=== PATIENT | male | born 1990 | race Two or more races ===

== ENCOUNTER 2021-05-10 02:07 | Inpatient (IN) | payer OTHER ==
[2021-05-10] VITALS (42 sets, daily range): BP systolic 99–210; BP diastolic 58–119
[~2021-05-10] VITALS: Ht 175.3 cm; Wt 105.7 kg
[2021-05-10] MEDS ORDERED: ASPIRIN 81MG TABLET PO ONE (02:45)
[2021-05-10] MEDS ORDERED: HEPARIN 25,000 UNITS PREMIX 250 ML IV PRN (02:45)
[2021-05-10] MEDS ORDERED: FENTANYL CITRATE/PF 50MCG/ML 2ML VIAL IV ONE (02:45)
[2021-05-10] MEDS ORDERED: HEPARIN 5000 UNITS/ML VIAL IV SCH (02:45)
[2021-05-10] MEDS ORDERED: SODIUM CHLORIDE 0.9% 1,000 ML IV ONE (02:45)
[2021-05-10] MEDS ORDERED: HEPARIN BOLUS PRN aPTT 30-44 IV (03:30)
[2021-05-10] MEDS ORDERED: HEPARIN 60 UNITS/KG BOLUS IV SCH (03:30)
[2021-05-10] MEDS ORDERED: HEPARIN BOLUS PRN aPTT <30 IV (03:30)
[2021-05-10] MEDS ORDERED: HEPARIN 25,000 UNITS PREMIX 250 ML IV SCH (03:30)
[2021-05-10] MEDS ORDERED: LIDOCAINE HCL 1% 20ML VIAL (Pyxis) INJ ONE (03:35)
[2021-05-10] MEDS ORDERED: FENTANYL CITRATE/PF 50MCG/ML 2ML VIAL ONE (03:35)
[2021-05-10] MEDS ORDERED: MIDAZOLAM HCL 2 MG/2 ML VIAL ONE (03:35)
[2021-05-10] MEDS ORDERED: IOHEXOL-300 100 ML BOTTLE ONE (03:36)
[2021-05-10] MEDS ORDERED: IODIXANOL 320MG/ML 100 ML BOTTLE IV ONE (03:36)
[2021-05-10 03:55] LABS: CHLORIDE 100 mEq/L (98-107)
[2021-05-10 03:58] LABS: ETHANOL BLOOD < 10 mg/dL
[2021-05-10] MEDS ORDERED: TICAGRELOR 90 MG TABLET PO ONE (04:14)
[2021-05-10] MEDS ORDERED: ONDANSETRON HCL 4MG/2ML INJ IV PRN ×2 (04:15→07:00)
[2021-05-10] MEDS ORDERED: ACETAMINOPHEN 325MG TABLET PO PRN ×3 (04:15→07:00)
[2021-05-10] MEDS ORDERED: MORPHINE SULFATE 2 MG/ML CPJ (NOT FOR IM USE) IV PRN (04:15)
[2021-05-10] MEDS ORDERED: ASPIRIN 325MG TABLET ONE (04:17)
[2021-05-10] MEDS ORDERED: LISINOPRIL 2.5MG TABLET PO SCH (05:00)
[2021-05-10] MEDS ORDERED: ATROPINE SULFATE 1MG/10ML SYR IV PRN (05:00)
[2021-05-10] MEDS: SODIUM CHLORIDE 0.45% 1,000 ML IV SCH ×2 (05:35→13:33)
[2021-05-10 06:12] LABS: BASOPHILS % 0.8 % (0.0-2.0); EOSINOPHILS % 0.4 % (0.0-5.0); HEMATOCRIT. 44.9 % (42.0-52.0); HEMOGLOBIN. 16.4 g/dL (14.0-18.0); LYMPHOCYTES % 16.1 % (20.0-50.0); MEAN CORPUSCULAR HEMOGLOBIN 30.8 pg (28.0-32.0); MEAN CORPUSCULAR VOLUME 84.2 fL (80.0-94.0); MEAN PLATELET VOLUME 8.4 fl (7.4-10.4); MONOCYTES % 8.6 % (2.0-8.0); NEUTROPHILS % 74.1 % (40.0-76.0); PLATELET 302 x1000/uL (130-400); RED BLOOD CELL COUNT 5.33 mill/uL (4.7-6.1); RED CELL DISTRIBUTION WIDTH 13.2 % (11.6-14.6)
[2021-05-10 06:36] LABS: INR 1.1; PROTHROMBIN TIME 11.4 sec (9.6-11.0)
[2021-05-10] MEDS ORDERED: MAGNESIUM/ALUMINUM HYDROXIDE/SIMETHICONE 30ML UDC PO PRN (07:00)
[2021-05-10] MEDS ORDERED: NITROGLYCERIN 0.4MG TABLET SL SL PRN (07:00)
[2021-05-10] MEDS ORDERED: CLONIDINE 0.1MG TABLET PO PRN (07:00)
[2021-05-10] MEDS ORDERED: DOCUSATE SODIUM 100MG CAPSULE PO PRN (07:00)
[2021-05-10] MEDS ORDERED: IPRATROPIUM/ALBUTEROL 0.5-3(2.5)MG/3ML NEB NEB PRN (07:00)
[2021-05-10] MEDS ORDERED: DEXTROSE 50% WATER 50ML SYRINGE IV PRN (07:00)
[2021-05-10] MEDS ORDERED: GUAIFENESIN 200MG/10ML SUGAR FREE UDC PO PRN (07:00)
[2021-05-10] MEDS ORDERED: KETOROLAC 15MG/ML VIAL IV PRN (07:00)
[2021-05-10 07:20] LABS: PARTIAL THROMBOPLASTIN TIME 97.2 sec (23.4-31.0)
[2021-05-10] MEDS ORDERED: NALOXONE HCL 0.4MG/ML VIAL IV PRN (07:45)
[2021-05-10] MEDS: BLOOD SUGAR DIAGNOSTIC STRIP TEST SCH ×4 (07:50→21:31)
[2021-05-10] MEDS: ASPIRIN 81MG TABLET PO SCH (08:21)
[2021-05-10] MEDS: CLOPIDOGREL 75MG TABLET PO SCH (08:22)
[2021-05-10] MEDS: FAMOTIDINE 20MG TABLET PO SCH ×2 (08:22→20:20)
[2021-05-10] MEDS: NITROGLYCERIN OINT 1GM/INCH UDPKT TD SCH ×3 (08:25→22:44)
[2021-05-10] MEDS: METOPROLOL TARTRATE 25MG TABLET PO SCH ×2 (08:25→21:41)
[2021-05-10] MEDS: INSULIN LISPRO 100 UNITS/ML SUBCUT SCH ×4 (08:26→20:54)
[2021-05-10] MEDS: AMLODIPINE 10MG TABLET PO SCH (08:26)
[2021-05-10] MEDS: INSULIN GLARGINE UD 100 UNITS/ML SYR SUBCUT SCH (10:18)
[2021-05-10] MEDS ORDERED: HEPARIN 1000 UNITS/ML 10ML ONE (10:32)
[2021-05-10 17:18] LABS: CREATINE KINASE MB FRACTION 20.6 ng/mL (0.5-3.6)
[2021-05-10] MEDS: ATORVASTATIN CALCIUM 40MG TABLET PO SCH (20:20)
[2021-05-10] MEDS ORDERED: ZOLPIDEM TARTRATE 5MG TABLET PO PRN (21:00)
[2021-05-11] VITALS (52 sets, daily range): BP systolic 66–134; BP diastolic 30–108
[2021-05-11] MEDS: SODIUM CHLORIDE 0.45% 1,000 ML IV SCH ×2 (00:22→09:15)
[2021-05-11 00:26] LABS: CREATINE KINASE MB FRACTION 10.9 ng/mL (0.5-3.6)
[2021-05-11] MEDS: NITROGLYCERIN OINT 1GM/INCH UDPKT TD SCH ×3 (05:16→21:57)
[2021-05-11 06:46] LABS: BASOPHILS % 0.4 % (0.0-2.0); EOSINOPHILS % 0.6 % (0.0-5.0); HEMATOCRIT. 41.2 % (42.0-52.0); HEMOGLOBIN. 14.7 g/dL (14.0-18.0); LYMPHOCYTES % 19.7 % (20.0-50.0); MEAN CORPUSCULAR HEMOGLOBIN 30.4 pg (28.0-32.0); MEAN CORPUSCULAR VOLUME 85.5 fL (80.0-94.0); MEAN PLATELET VOLUME 8.7 fl (7.4-10.4); MONOCYTES % 10.7 % (2.0-8.0); NEUTROPHILS % 68.6 % (40.0-76.0); PLATELET 279 x1000/uL (130-400); RED BLOOD CELL COUNT 4.82 mill/uL (4.7-6.1)
[2021-05-11] MEDS: BLOOD SUGAR DIAGNOSTIC STRIP TEST SCH ×4 (07:35→20:09)
[2021-05-11] MEDS: ASPIRIN 81MG TABLET PO SCH (09:10)
[2021-05-11] MEDS: FAMOTIDINE 20MG TABLET PO SCH ×2 (09:11→20:15)
[2021-05-11] MEDS: AMLODIPINE 10MG TABLET PO SCH (09:11)
[2021-05-11] MEDS: METOPROLOL TARTRATE 25MG TABLET PO SCH ×2 (09:11→21:58)
[2021-05-11] MEDS: CLOPIDOGREL 75MG TABLET PO SCH (09:11)
[2021-05-11] MEDS: INSULIN LISPRO 100 UNITS/ML SUBCUT SCH ×4 (09:12→20:18)
[2021-05-11] MEDS: INSULIN GLARGINE UD 100 UNITS/ML SYR SUBCUT SCH (09:12)
[2021-05-11 09:54] LABS: CHLORIDE 101 mEq/L (98-107)
[2021-05-11 10:11] LABS: PHOSPHORUS 2.6 mg/dL (2.5-4.9)
[2021-05-11] MEDS ORDERED: POTASSIUM CHLORIDE 20MEQ/PACKET PO NR (11:15)
[2021-05-11] MEDS ORDERED: INSULIN GLARGINE UD 100 UNITS/ML SYR SUBCUT NR (13:00)
[2021-05-11] MEDS: ATORVASTATIN CALCIUM 40MG TABLET PO SCH (20:14)
[2021-05-12] VITALS (20 sets, daily range): BP systolic 105–145; BP diastolic 44–88
[2021-05-12] MEDS: NITROGLYCERIN OINT 1GM/INCH UDPKT TD SCH (05:42)
[2021-05-12 07:07] LABS: CHLORIDE 104 mEq/L (98-107)
[2021-05-12 07:16] LABS: BASOPHILS % 0.5 % (0.0-2.0); EOSINOPHILS % 0.9 % (0.0-5.0); HEMATOCRIT. 40.3 % (42.0-52.0); HEMOGLOBIN. 14.7 g/dL (14.0-18.0); LYMPHOCYTES % 22.5 % (20.0-50.0); MEAN CORPUSCULAR HEMOGLOBIN 30.7 pg (28.0-32.0); MEAN CORPUSCULAR VOLUME 84.2 fL (80.0-94.0); MEAN PLATELET VOLUME 9.2 fl (7.4-10.4); MONOCYTES % 10.2 % (2.0-8.0); NEUTROPHILS % 65.9 % (40.0-76.0); PLATELET 285 x1000/uL (130-400); RED BLOOD CELL COUNT 4.79 mill/uL (4.7-6.1); RED CELL DISTRIBUTION WIDTH 13.3 % (11.6-14.6)
[2021-05-12] MEDS: BLOOD SUGAR DIAGNOSTIC STRIP TEST SCH (07:52)
[2021-05-12] MEDS ORDERED: POTASSIUM CHLORIDE 20MEQ/PACKET PO SCH (09:00)
[2021-05-12] MEDS: AMLODIPINE 10MG TABLET PO SCH (09:25)
[2021-05-12] MEDS: FAMOTIDINE 20MG TABLET PO SCH (09:25)
[2021-05-12] MEDS: CLOPIDOGREL 75MG TABLET PO SCH (09:26)
[2021-05-12] MEDS: METOPROLOL TARTRATE 25MG TABLET PO SCH (09:26)
[2021-05-12] MEDS: ASPIRIN 81MG TABLET PO SCH (09:26)
[2021-05-12] MEDS: INSULIN LISPRO 100 UNITS/ML SUBCUT SCH (09:30)
[2021-05-12] MEDS ORDERED: INSULIN GLARGINE UD 100 UNITS/ML SYR SUBCUT SCH (10:00)
== END 2021-05-12 10:45 | disposition home or self-care (01) | DRG 247 ==
LOC: ER 02:07 → MICUSO 03:16 → CVICU 04:45
PROVIDERS: ADMIT Internal Medicine; ATTEND Internal Medicine
PROC: 027034Z Dilation of Coronary Artery, One Artery with Drug-eluting Intraluminal Device, Percutaneous Approach (ICD-10-PCS; principal; 2021-05-11)
PROC: 4A023N7 Measurement of Cardiac Sampling and Pressure, Left Heart, Percutaneous Approach (ICD-10-PCS; 2021-05-11)
PROC: B2111ZZ Fluoroscopy of Multiple Coronary Arteries using Low Osmolar Contrast (ICD-10-PCS; 2021-05-11)
PROC: B2151ZZ Fluoroscopy of Left Heart using Low Osmolar Contrast (ICD-10-PCS; 2021-05-11)
PROC: B41F1ZZ Fluoroscopy of Right Lower Extremity Arteries using Low Osmolar Contrast (ICD-10-PCS; 2021-05-11)
DX: I21.11 ST elevation (STEMI) myocardial infarction involving right coronary artery (principal); E87.1 Hypo-osmolality and hyponatremia; I10 Essential (primary) hypertension; E78.00 Pure hypercholesterolemia, unspecified; R74.01 Elevation of levels of liver transaminase levels; E66.9 Obesity, unspecified; R79.89 Other specified abnormal findings of blood chemistry; Z20.822 Contact with and (suspected) exposure to COVID-19; E11.9 Type 2 diabetes mellitus without complications; I25.10 Atherosclerotic heart disease of native coronary artery without angina pectoris; Z86.16 Personal history of COVID-19; Z68.34 Body mass index [BMI] 34.0-34.9, adult
CPT/HCPCS: 36415; 71045; 80048; 80053; 80061; 80320; 82550; 82553; 82962; 83036; 83735; 83880; 84100; 84484; 85025; 87426; 92928; 93005; 93306; 93458; 93970; 99285; C1760; C1769; C1874; C1887; C1893; J1644; J1815; J2250; J3010; J3490; J7030; Q9967; G0480; J8499